=== PATIENT | female | born 1965 | race African-American/Black ===

== ENCOUNTER 2016-09-19 14:10 | Emergency (ER) | payer BC ==
[~2016-09-19] VITALS: Ht 165.1 cm; Wt 96.2 kg
[~2016-09-19 14:10] MED LIST: BIOFREEZE WITH120 GM TP; IBUPROFEN PO; PHENTERMINE PO; STOOL SOFTENER100 M1 PO; VICODIN 5/500 T1 TAB PO; ZOCOR20 MG PO
== END 2016-09-19 16:28 | disposition home or self-care (01) ==
LOC: CFTX 14:10 → CED 14:10 → CFTX 16:18
DX: J02.9 Acute pharyngitis, unspecified (principal); R03.0 Elevated blood-pressure reading, without diagnosis of hypertension; M19.90 Unspecified osteoarthritis, unspecified site; Z88.5 Allergy status to narcotic agent
CPT/HCPCS: 87651; 99283

== ENCOUNTER 2016-10-03 00:05 | Emergency (ER) | payer BC | END 2016-10-03 01:55 | disposition home or self-care (01) | LOC: CED 00:05 | DX: H66.92 Otitis media, unspecified, left ear (principal); L08.89 Other specified local infections of the skin and subcutaneous tissue; Z88.5 Allergy status to narcotic agent; Z79.899 Other long term (current) drug therapy | CPT/HCPCS: 99282 ==

== ENCOUNTER → 2016-11-19 | Outpatient (CLI) | payer BC ==
--- NOTE | ~2016-11-19 | MY29 ---
[facility] A Service of [facility] RADIOLOGY TEXT RESULTS PATIENT: JOANNE KNOX LOCATION: [facility] : 67 UNIT #: [id number] AGE: [address]: Dung Pruett MD SEX: F ORDER DR: [id number] [facility] [address] [place] [place], [place] [address] [id number] O MR#: [id number] Acc #: [id number] NAME: JOANNE KNOX. : 1965 SEX: F STUDY DATE/TIME: 11/19/2016 10:26 UNIT: [facility] ROOM: STUDY DESCRIPTION: MY [facility] SCREENING W/ CAD BILAT Attending Physician: Dung Pruett M.D. Referring Physician: Dung Pruett M.D. Ordering Physician: Dung Pruett M.D. Primary Care Physician: Dung Pruett M.D. MEDICAL IMAGING REPORT This report is preliminary unless electronic signature is present EXAM Bilateral digital screening mammogram CAD. Date: 11/19/2016. HISTORY 51-year-old female with family history of breast cancer in mother at the age of 80 or 81. No personal history of breast cancer or current complaints. COMPARISON Bilateral screening mammogram 09/26/2015, 09/02/2014. FINDINGS CC and MLO views were obtained of each breast utilizing digital technique and reviewed with an FDA-approved CAD device. Extremely dense fibroglandular tissue is present bilaterally which can limit sensitivity of mammography. No focal suspicious nodule, architectural distortion or clustered microcalcification is seen. IMPRESSION 1. BIRADS 2. Benign findings. Extremely dense breast. No findings suspicious for malignancy. Routine bilateral screening mammogram is recommended 1 year. Patients over the age of 40 are entered into a reminder system with target due date for the next mammogram. A result letter will be sent to the patient. BIRADS: 2 Benign findings. [facility] A Service of [facility] RADIOLOGY TEXT RESULTS PATIENT: JOANNE KNOX LOCATION: [facility] : 67 UNIT #: [id number] AGE: [address]: Dung Pruett MD SEX: F ORDER DR: Dictated by... Phyllis Haile M.D. THIS IS AN ELECTRONICALLY VERIFIED REPORT Phyllis Haile M.D. at 11/22/2016 8:49 AM LLH/chema TD: 11/19/2016 15:55 JOB #: [id number] MEDICAL IMAGING REPORT Page 1 of 1 COPY
== END | disposition home or self-care (01) ==
LOC: CWCC 09:59
DX: Z12.31 Encounter for screening mammogram for malignant neoplasm of breast (principal); Z80.3 Family history of malignant neoplasm of breast
CPT/HCPCS: G0202